=== PATIENT | female | born 1985 | race Asian ===

== ENCOUNTER 2017-09-04 19:24 | Emergency (ER) | payer OTHER ==
[2017-09-04 19:41] VITALS: BP 154/87; PULSE 77; TEMP 99; BMI 29.2
[2017-09-04] MEDS ORDERED: ACETAMINOPHEN 325 MG TABLET (FP) PO ONE (19:42)
[2017-09-04] MEDS ORDERED: ALBUTEROL SO4 2.5/IPRATROPIUM 0.5 INH SOL 3 ML VIAL.NEB. NEB ONE ×2 (19:42→20:17)
--- NOTE | 2017-09-04 19:42 | PDOC ---
Rapid Medical Evaluation Time Seen by Provider: 09/04/17 19:36 Medical Evaluation: Allergies Allergy/AdvReac Type Severity Reaction Status Date / Time No Known Allergies Allergy Verified 09/01/17 12:22 09/04/17 19:36 The patient presents with a chief complaint of: Cold symptoms since Sunday. Seen on 09/01/17 and diagnosed with flu like symptoms. Currently taking flonase and ibuprofen. Strep was negative. I have performed a brief in-person evaluation of this patient; Pertinent physical exam findings: ambulatory, in no respiratory distress, CTAB I have ordered the following: Tylenol, duoneb The patient will proceed to the ED for further evaluation.
[2017-09-04] MEDS ORDERED: ACETAMINOPHEN 325 MG TABLET (FP) ONE (20:17)
--- NOTE | 2017-09-04 20:54 | PDOC ---
History of Present Illness - General Chief Complaint: Cold Symptoms Stated Complaint: COLD SYMPTOMS Time Seen by Provider: 09/04/17 19:36 History Source: Patient, Old Records - History of Present Illness Initial Comments: 09/04/17 20:58 To 31-year-old woman without significant past medical history presents to emergency department with 4-5 days of sinus pressure, nasal congestion, frontal headaches, dry cough, postnasal drip. Patient seen and evaluated here 09/01 and was given symptomatic treatment instructions. Patient states she has been taken ibuprofen and Flonase as directed and minimal relief of symptoms. she denies fevers, chills, chest pain, shortness of breath, dizziness, abdominal pain, nausea, vomiting. Past History - Past Medical History Allergies/Adverse Reactions: Allergies Allergy/AdvReac Type Severity Reaction Status Date / Time No Known Allergies Allergy Verified 09/04/17 19:38 Home Medications: Ambulatory Orders Ferrous Sulfate, Dried [Iron] 159 mg PO ASDIR 09/01/17 Fluticasone Prop 0.05% Nasal [Flonase -] 1 - 2 spray NS DAILY #1 spray.pump Ibuprofen [Advil -] 600 mg PO QID 09/01/17 Magnesium Amino Acid Chelate [Magnesium] 100 mg PO ASDIR 09/01/17 Paroxetine HCl [Paxil -] 20 mg PO DAILY 09/01/17 Amox-Tr/K Cl [Augmentin - 875Mg Tablet] 1 tab PO BID #20 tablet 09/04/17 COPD: No Psychiatric Problems: Yes (DEPRESSION) - Suicide/Smoking/Psychosocial Hx Smoking History: Never smoked Have you smoked in the past 12 months: No Information on smoking cessation initiated: No Hx Alcohol Use: No Drug/Substance Use Hx: No Substance Use Type: None Review of Systems - Review of Systems Able to Perform ROS?: Yes Is the patient limited Icelandic proficient: No Constitutional: No: Symptoms Reported HEENTM: Yes: See HPI Respiratory: Yes: See HPI Cardiac (ROS): No: Symptoms Reported ABD/GI: No: Symptoms Reported : No: Symptoms Reported Musculoskeletal: Yes: See HPI Integumentary: No: Symptoms Reported Neurological: No: Symptoms reported Endocrine: No: Symptoms Reported Hematologic/Lymphatic: No: Symptoms Reported *Physical Exam - Vital Signs Last Vital Signs Temp Pulse Resp BP Pulse Ox 99.0 F 77 18 154/87 99 09/04/17 19:39 09/04/17 19:39 09/04/17 19:39 09/04/17 19:39 09/04/17 19:39 - Physical Exam General Appearance: Yes: Appropriately Dressed. No: Apparent Distress HEENT: positive: TMs Normal, Nasal Congestion, Rhinorrhea, Sinus Tenderness. negative: Pharyngeal Erythema, Tonsillar Exudate, Tonsillar Erythema Neck: positive: Trachea midline, Supple Respiratory/Chest: positive: Lungs Clear, Normal Breath Sounds. negative: Respiratory Distress, Accessory Muscle Use Cardiovascular: positive: Regular Rhythm, Regular Rate. negative: Murmur Gastrointestinal/Abdominal: positive: Normal Bowel Sounds, Soft. negative: Tender Musculoskeletal: positive: Normal Inspection. negative: CVA Tenderness Extremity: positive: Normal Inspection, Normal Range of Motion Integumentary: positive: Normal Color, Dry, Warm Neurologic: positive: Fully Oriented, Alert, Normal Response, Motor Strength 10/20 ED Treatment Course - Medications Given in the ED: ED Medications Discontinued Medications Generic Name Dose Route Start Last Admin Trade Name Dougq PRN Reason Stop Dose Admin Acetaminophen 650 mg 09/04/17 19:42 09/04/17 20:22 Tylenol - PO 09/04/17 19:43 650 mg ONCE ONE Administration Albuterol/Ipratropium 1 amp 09/04/17 19:42 09/04/17 20:22 Duoneb - NEB 09/04/17 19:43 1 amp ONCE ONE Administration Medical Decision Making - Medical Decision Making 09/04/17 21:01 A/P: 31-year-old woman with sinus pressure, frontal headache, nasal congestion, postnasal drip, dry cough for 4 days TMs within normal limits. Tenderness over maxillary and frontal sinuses upon palpation. Oropharynx clear without erythema or exudates. Cobblestoning noted on posterior oropharynx. Lungs clear to auscultation bilaterally. Sinusitis Patient instructed to continue previous symptomatic treatment and I will add Augmentin 875 twice a day for 10 days. Patient verbalized understanding the discharge instructions strict return precautions provided *DC/Admit/Observation/Transfer Diagnosis at time of Disposition: Sinusitis, acute maxillary Qualifiers: Recurrence: recurrent Qualified Code(s): J01.01 - Acute recurrent maxillary sinusitis - Discharge Dispostion Disposition: HOME Condition at time of disposition: Stable Admit: No - Prescriptions Prescriptions: Amox-Tr/K Cl [Augmentin - 875Mg Tablet] 1 tab PO BID #20 tablet - Referrals Referrals: Manfred Hudson MD [Primary Care Provider] - - Patient Instructions Additional Instructions: Rest, drink lots of fluids: Teas, water, soups, Pedialyte Steamy showers/seem to face break up mucus Lots of handwashing and good hygiene Continue [id number] medications for symptomatic relief Tylenol or Motrin for fever and pain Augmentin 1 tab twice a day for 10 days Followup with private physician in one to 2 days as needed Return to emergency department for worsened symptoms, fevers, dehydration - Post Discharge Activity Forms/Work/School Notes: Back to Work
== END 2017-09-04 21:21 | disposition home or self-care (01) ==
LOC: JERFT 19:24
PROC: 3E0F7GC Introduction of Other Therapeutic Substance into Respiratory Tract, Via Natural or Artificial Opening (ICD-10-PCS; principal; 2017-09-04)
DX: J01.01 Acute recurrent maxillary sinusitis (principal)
CPT/HCPCS: 99281-25

== ENCOUNTER 2022-06-06 09:52 | Emergency (ER) | payer OTHER ==
[2022-06-06 10:07] VITALS: BP 123/79; PULSE 69; RESP 16; TEMP 98.2; BMI 30.4
[2022-06-06] MEDS ORDERED: diazePAM 5 MG TABLET PO ONE (11:23)
[2022-06-06] MEDS ORDERED: diazePAM 5 MG TABLET ONE (11:32)
== END 2022-06-06 13:53 | disposition home or self-care (01) ==
LOC: JER 09:52
DX: R05.1 Acute cough (principal); R09.81 Nasal congestion; R42 Dizziness and giddiness
CPT/HCPCS: 0241U-QW; 99283-25

== ENCOUNTER 2024-09-27 12:49 | Emergency (ER) | payer OTHER ==
[2024-09-27 12:55] VITALS: BP 122/83; PULSE 86; RESP 18; TEMP 98.1; BMI 30.9
[2024-09-27 15:27] LABS: EPI CELLS 9 /uL (0-25.1); HYALINE CASTS 0 /uL (0-3.1); URINE APPEARANCE CLEAR; URINE BACTERIA 189 /uL (0-1359); URINE BILIRUBIN NEGATIVE (NEGATIVE); URINE COLOR YELLOW; URINE GLUCOSE (UA) NEGATIVE (NEGATIVE); URINE KETONE NEGATIVE (NEGATIVE); URINE LEUK ESTERASE TRACE (NEGATIVE); URINE NITRITE NEGATIVE (NEGATIVE); URINE PROTEIN NEGATIVE (NEGATIVE); URINE RBC 18 /uL (0-23.9); URINE UROBILINOGEN 0.2 mg/dL (0.2-1.0); URINE WBC 7 /uL (0-25.8)
[2024-09-27 15:35] LABS: ABSOLUTE IMMATURE GRANULOCYTES 0.02 x10^3/uL (0.0-0.031); BASOPHILS # 0.03 x10^3/uL (0.01-0.08); EOSINOPHIL % 1.1 % (0.7-5.8); EOSINOPHILS # 0.11 x10^3/uL (0.04-0.36); HEMATOCRIT 40.3 % (34.1-44.9); HEMOGLOBIN 13.4 g/dL (11.2-15.7); MCHC 33.3 g/dl (32.2-35.5); MEAN PLT VOLUME 9.6 fl (9.4-12.3); MONOCYTE # 0.57 x10^3/uL (0.24-0.86); MONOCYTE % 5.8 % (4.7-12.5); PLATELET COUNT 296 x10^3/uL (182-369); RDW 13.8 % (12.1-16.8)
[2024-09-27 16:05] LABS: POTASSIUM 3.8 mmol/L (3.5-5.1)
[2024-09-27 16:07] LABS: ALBUMIN 3.3 g/dl (3.4-5.0); BLOOD UREA NITROGEN 7.2 mg/dL (7-18); CALCIUM 9.2 mg/dL (8.5-10.1)
[2024-09-27 16:10] LABS: CREATININE 0.5 mg/dL (0.55-1.3)
[2024-09-27 16:12] LABS: BILIRUBIN,TOTAL 0.6 mg/dL (0.2-1); TOT PROT 7.1 g/dl (6.4-8.2)
[2024-09-27 17:01] LABS: HCV DIAGNOSTIC IN-HOUSE W/RFLX NON-REACTIVE (NONREACTIVE); HIV INTERPRETATION NEGATIVE (NEGATIVE)
== END 2024-09-27 18:36 | disposition home or self-care (01) ==
LOC: JER 12:49
DX: O09.521 Supervision of elderly multigravida, first trimester (principal); O20.9 Hemorrhage in early pregnancy, unspecified; Z3A.10 10 weeks gestation of pregnancy
CPT/HCPCS: 36415; 76817-TC; 80053; 81003; 84702; 85025; 86803; 86850; 86900; 86901; 87086; 87389; 99284-25